=== PATIENT | female | born 1980 | race Native Hawaiian/Other Pacific Islander ===

== ENCOUNTER 2016-08-20 17:44 | Emergency (ER) | payer OTHER ==
--- NOTE | 2016-08-20 17:50 | OBDCSUM ---
Datetime: 08/19/2016 19:07 Discharge Comment, Provider: AURELIO neg ...urine culture sent
--- NOTE | 2016-08-20 17:51 | OBHP ---
Datetime: 08/19/2016 18:00 Admit Comment, IP Provider: Results came back....UA+ will give Cephalexin 500mg po QID x 7d...urine culture sent...spoke to Dr Acuna via phone
[2016-08-20 18:06] VITALS: BMI 29.2
[2016-08-20] MEDS ORDERED: Betamethasone Soluspan 30 mg/5mL Inj Susp IM SCH (18:15)
== END 2016-08-20 18:45 | disposition home or self-care (01) ==
LOC: H.EROB2 17:44
DX: O26.93 Pregnancy related conditions, unspecified, third trimester (principal); Z23 Encounter for immunization; Z3A.33 33 weeks gestation of pregnancy

== ENCOUNTER 2016-10-05 04:17 | Inpatient (IN) | payer OTHER ==
[2016-10-05] MEDS ORDERED: Lactated Ringer's 1,000 ML IV SCH (04:50)
[2016-10-05 04:57] VITALS: BMI 32.4
[2016-10-05] MEDS ORDERED: cefOXitin 2 GM in Sodium Chloride 0.9% 100 ML IVPB ONE (04:57)
[2016-10-05 05:18] VITALS: BP 132/98; PULSE 72; RESP 18; TEMP 97.8; O2SAT 100
[2016-10-05 05:29] LABS: BASO % 0.2 % (0.0-2.0); EOS # 0.2 K/uL (0.0-0.7); EOS % 1.7 % (0.0-4.0); HEMATOCRIT 36.2 % (34.0-47.0); LYMPH # 1.8 K/uL (1.0-4.3); LYMPH % 19.3 % (20.0-40.0); MEAN CELL VOLUME 89.2 fl (81.0-99.0); MEAN CORPUSCULAR HEMOGLOBIN 30.9 pg (27.0-31.0); MEAN CORPUSCULAR HGB CONC 34.7 g/dL (33.0-37.0); MEAN PLATELET VOLUME 8.5 fl (7.2-11.7); MONO # 0.5 K/uL (0.0-0.8); NEUT # 6.7 K/uL (1.8-7.0); NEUT % 73.8 % (50.0-75.0); NRBC % 0.1 % (0.0-0.0); RED CELL DISTRIBUTION WIDTH 13.5 % (11.5-14.5); WHITE BLOOD COUNT 9.1 K/uL (4.8-10.8)
[2016-10-05] MEDS ORDERED: Oxytocin 30 units/LR 500ML 500 ML IV ONE (07:09)
[2016-10-05] MEDS ORDERED: Morphine 1 mg/ml preservative-free Inj(Duramorph) ONE (08:27)
[2016-10-05] MEDS ORDERED: ePHEDrine 50 mg/ml Inj ONE (08:27)
[2016-10-05] MEDS ORDERED: Phenylephrine 10 mg/ml Inj ONE (08:28)
[2016-10-05] MEDS ORDERED: Sodium Chloride 0.9% 10 ML IV ONE (08:28)
--- NOTE | 2016-10-05 10:59 | OBADHP ---
Datetime: 10/05/2016 10:52 Admit Comment, IP Provider: term previous section in labor uneventful course Pelvic Type - PN: Adequate Extremities - PN: Normal Abdomen - PN: Normal Back - PN: Normal Breast - PN: Normal Lungs - PN: Normal Heart - PN: Normal Thyroid - PN: Normal Neurologic - PN: Normal HEENT - PN: Normal General - PN: Normal Presentation-Admit: Vertex FHR - Baseline A Provider: 130 Membranes, Provider: Intact Contraction Comments Provider: 2-5min Gestation - Est Wks by US: 39+ Vital Signs Provider: Reviewed; Within Normal Limits IP Chief Complaint: Uterine contractions NICHD Variability Prov Fetus A: Moderate 6-25bpm NICHD Accel Fetus A IP Provider: 10X10 FHR Category Provider Fetus A: Category I NICHD Decel Fetus A IP Provider: None Dilatation, Provider: closed Effacement, Provider: 50% Station, Provider: -3 Genitourinary Exam: Normal DTRs - PN: Normal EGA AdmitDate IP: 39.1 IP Adm Impression: Term, intrauterine ; Active labor; Intact Membranes IP Admit Plan: Admit to unit; Initiate Section protocol Datetime: 08/19/2016 16:28 Comments, ACOG Physical Exam: ROS: General: No weakness; no fatigue HEENT: no DODD; No Visual dist CV: No CP; no palpitations Resp: no SOB; no Cough GI: no NVD : No FUD MS: no joint pain Pool Provider: Negative IP Hx Assessment: The History has been Reviewed and is Current
--- NOTE | 2016-10-05 11:06 | OBDS ---
DELIVERY PERSONNEL Delivery Doctor: Porter Acuna MD Scrub Nurse: Dipika Muse RN Genetic Physician: Aranza Valdez RNC MATERNAL INFORMATION Delivery Anesthesia: Epidural Medications in Delivery: pitocin 20 units Placenta Cultured: No Maternal Complications: None Other Maternal Complications: Dr Farris assited Provider Comments: delivery of live baby boy 9/9 clear fluid cord with 3vessels placenta intac t tubes and ovaries wnl LABOR SUMMARY EDC: 10/11/2016 00:00 No. Babies in Womb: 1 Attempted: No Labor Anesthesia: None LABOR INFORMATION Reason for Induction: Not Applicable Onset of Labor: 10/05/2016 02:50 Oxytocin: N/A Group B Beta Strep: Negative Steroids Given: None Reason Steroids Not Administered: Not Applicable MEMBRANES Rupture of Membranes: 10/05/2016 09:52 Length of Rupture (hrs): 0.00 Amniotic Fluid Color: Clear Amniotic Fluid Amount: None Amniotic Fluid Odor: Normal STAGES OF LABOR Stage 3 hrs: 0 Stage 3 min: 1 Total Time in Labor hrs: 7 Total Time in Labor min: 3 VAGINAL DELIVERY Episiotomy: None Laceration Extension: N/A Laceration Type: None Sponge Count Correct: Yes Sharps Count Correct: Yes Count Comment: correct CSECTION DELIVERY Primary Indication: Repeat Elective CSection Urgency: Non Elective CSection Incidence: Repeat Labor: Labor Elective: N/A CSection Incision: Lower Uterine Transverse BABY A INFORMATION Infant Delivery Date/Time: 10/05/2016 09:52 Method of Delivery: Vaginal Born in Route : No : N/A Forceps: N/A Vacuum Extraction: N/A Shoulder Dystocia : No SHOULDER DYSTOCIA BABY A Delivery Date/Time: 10/05/2016 09:52 PRESENTATION/POSITION BABY A Presentation: Cephalic Cephalic Presentation: Vertex PLACENTA INFORMATION BABY A Placenta Delivery Time : 10/05/2016 09:53 Placenta Method of Delivery: Expressed Placenta Status: Delivered SCORES BABY A Heart Rate 1 min: >100 bpm Resp Effort 1 min: Good Cry Reflex Irritability 1 min: Cough or Sneeze or Pulls Away Muscle Tone 1 min: Active Motion Color 1 min: Body [place], Extremities Blue SCORE 1 MIN: 9 Heart Rate 5 min: >100 bpm Resp Effort 5 min: Good Cry Reflex Irritability 5 min: Cough or Sneeze or Pulls Away Muscle Tone 5 min: Active Motion Color 5 min: Body [place], Extremities Blue SCORE 5 MIN: 9 INFORMATION BABY A Gestational Age at Delivery: 39.0 Gestational Status: Term Outcome : Liveborn Condition : Stable Sex: Male WEIGHT/LENGTH BABY A Birthweight (gms): 3040 Infant Weight (lb): 6 Weight (oz): 11 Infant Length Inches: 18.25 Length cms: 46.4 CORD INFORMATION BABY A No. Cord Vessels: 3 Nuchal Cord : Around Neck x1, Loose Cord Blood Taken: Yes Suction: Mouth; Nose ASSESSMENT BABY A Infant Complications: None Physical Findings at Delivery: Within Normal Limits Respirations: Appears Normal Cable Operator/ALS Called : Yes Transferred To: Nursery
[2016-10-05] MEDS ORDERED: Bisacodyl 5mg EC Tab PO PRN (11:12)
[2016-10-05] MEDS ORDERED: Oxycodone/Acetaminophen 5/325 mg Tab PO PRN ×3 (11:12→11:20)
[2016-10-05] MEDS ORDERED: DiphenhydrAMINE 50 mg/ml Inj IVP PRN (11:20)
--- NOTE | 2016-10-05 12:46 | OP ---
PROCEDURE DATE: 10/05/2016 PREOPERATIVE DIAGNOSES: Term , previous , in labor. POSTOPERATIVE DIAGNOSES: Term , previous , in labor. SURGEON: Lv Acuna MD STUDIO RECEPTIONIST: Dr. Farris. ANESTHESIA: Dr. Lai, spinal anesthesia. DESCRIPTION OF PROCEDURE: With the patient in the supine position and spinal anesthesia, the patient was prepped and draped in usual sterile manner. Pfannenstiel incision was made and taken down throu gh the fascia in layers. Fascia incised and extended bilaterally. Muscles from the fascia by sharp dissection, after which the muscles opened in the midline with Yeimi clamps. Peritoneum wa s grasped, incised and extended vertically. Upon entering the abdominal cavity, paracolic gutters we re packed with wet laps, pushing the bowel away from the operative field. After this was done, a emilia dder flap was established pushing the bladder away from the operative field. A low transverse incisi on was made in the uterus, extended bilaterally and curving upwards. Baby was removed without any co mplication and given to bead wire insulator who resuscitated. Following this, the placenta was removed inta ct. Uterus was then exteriorized, cleaned, and closed in 2 layers with [address] Farris assist ing in each step of the way. After this was done, the peritoneum was closed with 1 Vicryl. Muscles a pproximated with 1 Vicryl. The fascia was closed with 1 Vicryl running interlocking stitch starting at each end and finishing in the midline. Dr. Farris doing his half and I am doing my half. After this was done, the subcuticular layer was approximated with 2-0 plain and the skin was closed in a herrera bcuticular fashion with 3-0 Prolene. The patient tolerated procedure well and was in satisfactory co ndition on the way to recovery room. Dr. Farris was present and helped to prepare the patient until the last stitch was set. Lv Acuna MD cc: 22 TT: 10/05/2016 12:45:56 rn
[2016-10-06 08:00] LABS: HEMATOCRIT 27.8 % (34.0-47.0); MEAN CELL VOLUME 90.5 fl (81.0-99.0); MEAN CORPUSCULAR HEMOGLOBIN 30.3 pg (27.0-31.0); MEAN CORPUSCULAR HGB CONC 33.5 g/dL (33.0-37.0); RED CELL DISTRIBUTION WIDTH 13.3 % (11.5-14.5)
[2016-10-06] MEDS ORDERED: Lansinoh for Breast Feeding Mothers TP PRN (09:17)
[2016-10-06] MEDS ORDERED: Lansinoh for Breast Feeding Mothers TP SCH (13:00)
--- NOTE | 2016-10-06 20:13 | OBPPN ---
Datetime: 10/06/2016 20:08 PP Pain Prov: Within normal limits PP Nausea Prov: Denies PP Flatus Prov: Yes PP BM Prov: No PP Breasts Prov: Normal PP Heart Prov: Normal PP Lungs Prov: Normal PP Abdomen/Uterus Prov: Normal PP Lochia Prov: Normal PP Vulva/Perineum Prov: Normal PP CVA Tenderness Prov: Normal PP Extremities Prov: Normal PP C/S Incision Prov: Normal PP Progress Prov: Normal PP Impression Prov: Normal progression PP Plan Prov: Continue present management PP Progress Note Prov: stable pod1 no complaints continue present care IP PP Procedures: None Vital Signs Provider PP: Reviewed; Within Normal Limits
--- NOTE | 2016-10-07 09:10 | OBPPN ---
Datetime: 10/07/2016 09:05 PP Pain Prov: Within normal limits PP Nausea Prov: Denies PP Flatus Prov: Yes PP BM Prov: No PP Breasts Prov: Normal PP Heart Prov: Normal PP Lungs Prov: Normal PP Abdomen/Uterus Prov: Normal PP Lochia Prov: Normal PP Vulva/Perineum Prov: Normal PP CVA Tenderness Prov: Normal PP Extremities Prov: Normal PP C/S Incision Prov: Normal PP Progress Prov: Normal PP Impression Prov: Normal progression PP Plan Prov: Continue present management PP Progress Note Prov: stable pod2 continue present care IP PP Procedures: None
[2016-10-07] MEDS ORDERED: Lansinoh for Breast Feeding Mothers TP PRN (13:35)
[2016-10-07] MEDS ORDERED: DiphenhydrAMINE 50 mg/ml Inj IVP PRN (13:35)
[2016-10-07] MEDS ORDERED: Bisacodyl 5mg EC Tab PO PRN (13:35)
--- NOTE | 2016-10-08 07:27 | OBPPN ---
Datetime: 10/08/2016 07:24 PP Pain Prov: Within normal limits PP Nausea Prov: Denies PP Flatus Prov: Yes PP BM Prov: Yes PP Breasts Prov: Normal PP Heart Prov: Normal PP Lungs Prov: Normal PP Abdomen/Uterus Prov: Normal PP Lochia Prov: Normal PP Vulva/Perineum Prov: Normal PP CVA Tenderness Prov: Normal PP Extremities Prov: Normal PP C/S Incision Prov: Normal PP Progress Prov: Normal PP Impression Prov: Normal progression PP Plan Prov: Continue present management PP Progress Note Prov: stable pod3 continue present care IP PP Procedures: None Vital Signs Provider PP: Reviewed; Within Normal Limits
--- NOTE | 2016-10-08 07:30 | OBDCSUM ---
Datetime: 10/08/2016 07:26 Discharged to, Provider: Home Follow up at, Provider: Disch Instr Activity: May be up to bathroom; May be up for meals; May Shower Disch Instr Diet: Regular Discharge Instructions, Provider: Specific instructions as noted Discharge Diagnosis, Provider: Term Delivered Discharge Time: 10/08/2016 07:26 Follow up in weeks, Provider: 1week Disch Referrals: None Disch Activity Restrictions: No exercising; No lifting; No driving; Minimize walking; Minimize stair -climbing; No sexual activity; Nothing in vagina - Godfrey, tampons, douche Contraception after Delivery: Undecided Datetime: 08/20/2016 18:48 Discharge Diagnosis, Provider: Term Delivered
== END 2016-10-08 11:20 | disposition home or self-care (01) | DRG 766 ==
LOC: H.EROB2 04:17 → H.L&D 05:00 → H.OB/GYN 13:30
PROVIDERS: ADMIT Specialist; ATTEND Specialist
PROC: 10D00Z1 Extraction of Products of Conception, Low, Open Approach (ICD-10-PCS; principal; 2016-10-05)
PROC: 4A1HXCZ Monitoring of Products of Conception, Cardiac Rate, External Approach (ICD-10-PCS; 2016-10-05)
DX: O34.211 Maternal care for low transverse scar from previous cesarean delivery (principal); O69.81X0 Labor and delivery complicated by cord around neck, without compression, not applicable or unspecified; Z3A.39 39 weeks gestation of pregnancy; Z37.0 Single live birth